=== PATIENT | male | born 1945 | race Caucasian/White ===

== ENCOUNTER → 2018-10-09 | Outpatient (REF) | payer MEDICARE, OTHER ==
[2018-10-09 09:55] LABS: ANION GAP 16 (6-22 (CALC)); BUN 10 mg/dL (8-23); BUN/CREATININE RATIO 12 (12-20 (CALC)); CARBON DIOXIDE 26 mmol/l (22-30); CHLORIDE 103 mmol/l (95-108); CREATININE 0.9 mg/dL (0.7-1.3); GFR > 60 ML/MIN (>=60 (CALC)); GFR FOR AFR.AMER. > 60 ML/MIN (>=60 (CALC)); POTASSIUM 4.6 mmol/l (3.5-5.1); SODIUM 140 mmol/l (137-146)
== END | disposition home or self-care (01) ==
LOC: LAB 08:33
PROVIDERS: ATTEND Internal Medicine
DX: E11.42 Type 2 diabetes mellitus with diabetic polyneuropathy (principal)

== ENCOUNTER 2022-07-24 19:00 | Observation (INO) | payer MEDICARE, OTHER ==
[~2022-07-24] VITALS: Ht 167.6 cm; Wt 85.0 kg
[2022-07-24 19:43] LABS: HEMATOCRIT 38.9 % (39.0-50.0); HEMOGLOBIN 12.7 g/dl (14.0-18.0); IMMATURE GRANULOCYTES 0.6 % (0.0-5.0); MEAN CELL VOLUME 92.4 fL CALC (80.0-100.0); MEAN CORPUSCULAR HGB 30.2 pG CALC (26.0-32.0); MEAN CORPUSCULAR HGB CONC 32.6 g/dL CAL (32.0-36.0); NEUT# 10.95 thou/uL (1.82-7.42); RED BLOOD COUNT 4.21 mill/uL (4.70-6.10); RED CELL DISTRI WIDTH 14.5 % (11.5-15.5)
[2022-07-24 19:54] LABS: AMYLASE 141 u/l (30-110); ANION GAP 9 (6-22 (CALC)); BILIRUBIN, TOTAL 0.6 mg/dL (0.0-1.4); BUN 18 mg/dL (8-23); BUN/CREATININE RATIO 20 (12-20 (CALC)); CARBON DIOXIDE 29 mmol/l (22-30); CHLORIDE 100 mmol/l (95-108); CREATININE 0.9 mg/dL (0.7-1.3); GFR FOR AFR.AMER. > 60 ML/MIN (>=60 (CALC)); GFR OTHER RACES > 60 ML/MIN (>=60 (CALC)); LIPASE 519 u/l (23-300); POTASSIUM 3.9 mmol/l (3.5-5.1); SODIUM 135 mmol/l (137-146); TOTAL PROTEIN 6.3 g/dL (6.3-8.2)
[2022-07-24 19:55] LABS: ALBUMIN 2.9 g/dL (3.2-5.0); ALKALINE PHOSPHATASE 266 u/l (38-126); SGOT/AST 95 u/l (19-48)
[2022-07-24 20:06] LABS: MYOGLOBIN 34 ng/mL (0 - 121)
[2022-07-24 22:13] LABS: URINE BILIRUBIN - DIPSTICK NEGATIVE (NEGATIVE); URINE BLOOD DIPSTICK LARGE (NEGATIVE); URINE COLOR YELLOW; URINE GLUCOSE - DIPSTICK NEGATIVE (NEGATIVE); URINE KETONE NEGATIVE (NEGATIVE); URINE PH 6.5 (4.5-8.0); URINE PROTEIN - DIPSTICK TRACE mg/dL (NEG-TRACE); URINE SPECIFIC GRAVITY <=1.005
[2022-07-24 22:14] LABS: URINE LEUK ESTERASE MODERATE (NEGATIVE); URINE NITRITE - DIPSTICK POSITIVE (Negative)
[2022-07-24 22:26] LABS: URINE BACTERIA MANY hpf; URINE WBC >100 WBC/hpf (0-5)
[2022-07-25 00:10] VITALS: BP 115/60
[2022-07-25 04:18] VITALS: BP 104/58
[2022-07-25 06:58] VITALS: BP 127/60
[2022-07-25 11:01] VITALS: BP 116/57
[2022-07-25] MEDS ORDERED: ROSUVASTATIN CA10 MG PO (13:15)
[2022-07-25] MEDS ORDERED: LOSARTAN POTASS50 MG PO (13:16)
[2022-07-25] MEDS ORDERED: METFORMIN HCL1000 MG PO (13:20)
[2022-07-25] MEDS ORDERED: TRESIBA100 UNIT/M SC (13:21)
[2022-07-25] MEDS ORDERED: [UNRECOGNIZED DRUG - SUPPLY] (13:24)
[2022-07-25] MEDS ORDERED: FLEXERIL5 M1 PO (13:25)
[2022-07-25] MEDS ORDERED: CYANOCOBAL1000 MCG/M IM (13:30)
[2022-07-25] MEDS ORDERED: MEDROL4 M1 PO (13:31)
[2022-07-25] MEDS ORDERED: ROPINIROLE0.5 MG PO (13:33)
[2022-07-25] MEDS ORDERED: MECLIZINE25 M1 PO (13:34)
[2022-07-26 00:08] VITALS: BP 124/59
[2022-07-26 04:16] VITALS: BP 113/53
[2022-07-26 05:25] LABS: MEAN CELL VOLUME 93.5 fL CALC (80.0-100.0); MEAN CORPUSCULAR HGB CONC 32.1 g/dL CAL (32.0-36.0); RED BLOOD COUNT 3.53 mill/uL (4.70-6.10); RED CELL DISTRI WIDTH 14.4 % (11.5-15.5)
[2022-07-26 05:43] LABS: HEMOGLOBIN 10.6 g/dl (14.0-18.0)
[2022-07-26 06:04] LABS: ALKALINE PHOSPHATASE 180 u/l (38-126); AMYLASE 50 u/l (30-110); ANION GAP 11 (6-22 (CALC)); BUN 15 mg/dL (8-23); BUN/CREATININE RATIO 15 (12-20 (CALC)); CARBON DIOXIDE 25 mmol/l (22-30); CHLORIDE 107 mmol/l (95-108); GFR FOR AFR.AMER. > 60 ML/MIN (>=60 (CALC)); GFR OTHER RACES > 60 ML/MIN (>=60 (CALC)); LIPASE 88 u/l (23-300); POTASSIUM 3.6 mmol/l (3.5-5.1); SGOT/AST 42 u/l (19-48); SODIUM 141 mmol/l (137-146)
[2022-07-26 06:15] LABS: ALBUMIN 2.2 g/dL (3.2-5.0); BILIRUBIN, TOTAL 0.3 mg/dL (0.0-1.4); TOTAL PROTEIN 4.7 g/dL (6.3-8.2)
[2022-07-26 06:28] VITALS: BP 123/60
[2022-07-26 10:09] VITALS: BP 121/57
[2022-07-26] MEDS ORDERED: CIPROFLOXACN500 MG PO (13:53)
[2022-07-26 15:55] VITALS: BP 139/62
== END 2022-07-26 17:00 | disposition home or self-care (01) ==
LOC: ED 19:00 → ED-I 22:32 → ED 22:50 → MS2 22:51
PROVIDERS: Emergency Medicine; Nurse Practitioner Family; ADMIT Internal Medicine; ATTEND Internal Medicine
DX: K85.90 Acute pancreatitis without necrosis or infection, unspecified (principal); N39.0 Urinary tract infection, site not specified; I10 Essential (primary) hypertension; E11.65 Type 2 diabetes mellitus with hyperglycemia; B96.20 Unspecified Escherichia coli [E. coli] as the cause of diseases classified elsewhere; Z23 Encounter for immunization; Z85.038 Personal history of other malignant neoplasm of large intestine; Z79.4 Long term (current) use of insulin; Z90.49 Acquired absence of other specified parts of digestive tract; Z93.3 Colostomy status; Z20.822 Contact with and (suspected) exposure to COVID-19
CPT/HCPCS: Q9967; S0164